=== PATIENT | female | born 1980 | race Hispanic/Latino ===

== ENCOUNTER 2017-07-31 15:44 | Emergency (ER) | payer BC ==
[2017-07-31 16:21] VITALS: BP 112/66; PULSE 86; RESP 16; TEMP 97.9; O2SAT 99
[2017-07-31] MEDS ORDERED: Albuterol-Ipratrop 3 mg / 0.5 (3 ml) UD INH STA (16:55)
[2017-07-31] MEDS ORDERED: Albuterol-Ipratrop 3 mg / 0.5 (3 ml) UD ONE (17:03)
--- NOTE | 2017-07-31 17:06 | ED PDOC ---
HPI: CCC, URI, Sore Throat Time Seen by Provider: 07/31/17 16:23 Chief Complaint (Nursing): Cough, Cold, Congestion Chief Complaint (Provider): cough History Per: Patient, Family () History/Exam Limitations: no limitations Onset/Duration Of Symptoms: Days (x3 weeks) Current Symptoms Are (Timing): Better Additional Complaint(s): 37 year old female who presents to the emergency department accompanied by , with a complaint of lingering cough exasperated at night associated with shortness of breath ongoing for 3 weeks. Denied any fever, chills, ear pain, chest pain, sore throat, back pain or sick contacts. Patient stated she went to [facility] on 07/27/17 for similar symptoms then given nasal sprays, Tessalon Perles and Zpack, which did improved cough but remained persistent. PMD: none provided Past Medical History Reviewed: Historical Data, Nursing Documentation, Vital Signs Vital Signs: Last Vital Signs Temp 97.9 F 07/31/17 16:18 Pulse 86 07/31/17 16:18 Resp 16 07/31/17 16:18 BP 112/66 07/31/17 16:18 Pulse Ox 99 07/31/17 17:20 - Medical History PMH: No Chronic Diseases - Surgical History Surgical History: No Surg Hx - Family History Family History: States: Unknown Family Hx - Social History Current smoker - smoking cessation education provided: No Ex-Smoker (has not smoked in the last 12 months): No Alcohol: None Drugs: Denies - Home Medications Home Medications: Ambulatory Orders Medication Instructions Recorded Albuterol 0.042% [Albuterol 0.042% 3 ml IH Q6 #1 packet 07/31/17 Inhal Jen (1.25mg/3ml) UD] Methylprednisolone [Medrol Dose 4 mg PO DAILY #21 mg 07/31/17 Pack (21 tabs)] Nebulizer [Compact Compressor 1 dev XX PRN PRN #1 dev 07/31/17 Nebulizer] Promethazine HCl/Codeine 5 ml PO HS #80 ml 07/31/17 [Prometh-Codein 6.25-10 mg/5 ml] - Allergies Allergies/Adverse Reactions: Allergies Allergy/AdvReac Type Severity Reaction Status Date / Time No Known Allergies Allergy Verified 07/31/17 16:17 Review of Systems ROS Statement: Except As Marked, All Systems Reviewed And Found Negative Constitutional: Negative for: Fever, Chills ENT: Negative for: Ear Pain, Throat Pain Cardiovascular: Negative for: Chest Pain Respiratory: Positive for: Cough, Shortness of Breath Musculoskeletal: Negative for: Back Pain Physical Exam - Reviewed Nursing Documentation Reviewed: Yes Vital Signs Reviewed: Yes - Physical Exam Appears: Positive for: Well, Non-toxic, No Acute Distress Head Exam: Positive for: ATRAUMATIC, NORMAL INSPECTION, NORMOCEPHALIC ENT: Positive for: Normal ENT Inspection, Pharynx Is (within normal limits). Negative for: Pharyngeal Erythema Cardiovascular/Chest: Positive for: Regular Rate, Rhythm, Chest Non Tender Respiratory: Positive for: Normal Breath Sounds. Negative for: Decreased Breath Sounds, Crackles, Rales, Wheezing, Respiratory Distress Neurologic/Psych: Positive for: Alert (x3), Oriented - ECG O2 Sat by Pulse Oximetry: 99 (RA) Pulse Ox Interpretation: Normal Medical Decision Making Medical Decision Making: Initial Impression: Cough Initial Plan: * Chest X-Ray * Duoneb 3ml INH Time: 5 --Chest X-Ray: no active disease noted. Interpreted by provider. Scribe Attestation: Documented by Dominique Jones, acting as a scribe for Sylwia Foster Provider Scribe Attestation: All medical record entries made by the Scribe were at my direction and personally dictated by me. I have reviewed the chart and agree that the record accurately reflects my personal performance of the history, physical exam, medical decision making, and the department course for this patient. I have also personally directed, reviewed, and agree with the discharge instructions and disposition. Disposition - Clinical Impression Clinical Impression: Upper respiratory infection - Patient ED Disposition Is Patient to be Admitted: No - Disposition Disposition: Routine/Home Disposition Time: 17:21 Condition: STABLE Prescriptions: Albuterol 0.042% [Albuterol 0.042% Inhal Jen (1.25mg/3ml) UD] 3 ml IH Q6 #1 packet Methylprednisolone [Medrol Dose Pack (21 tabs)] 4 mg PO DAILY #21 mg Nebulizer [Compact Compressor Nebulizer] 1 dev XX PRN PRN #1 dev PRN Reason: Shortness Of Breath Promethazine HCl/Codeine [Prometh-Codein 6.25-10 mg/5 ml] 5 ml PO HS #80 ml Instructions: Upper Respiratory Infection (ED) Forms: [employer] ([place]) - POA Present On Arrival: None
--- NOTE | 2017-08-01 10:19 | RAD ---
HISTORY: cough x 3 w COMPARISON: No prior. TECHNIQUE: Chest PA and lateral FINDINGS: LUNGS: No active pulmonary disease. PLEURA: No significant pleural effusion identified. No pneumothorax apparent. CARDIOVASCULAR: Normal. OSSEOUS STRUCTURES: Mild degenerative changes are seen in the lower thoracic spine region. Retrosternal region is unremarkable. VISUALIZED UPPER ABDOMEN: Normal. OTHER FINDINGS: None. IMPRESSION: No active disease.
== END 2017-07-31 17:20 | disposition home or self-care (01) ==
LOC: H.ER 15:44
DX: J06.9 Acute upper respiratory infection, unspecified (principal)